=== PATIENT | female | born 1970 | race Caucasian/White ===

== ENCOUNTER 2017-07-26 04:53 | Emergency (ER) | payer MEDICAID, OTHER ==
[~2017-07-26 04:53] MED LIST: Z.0.NO CURRENT MEDS
[2017-07-26 04:55] VITALS: BP 136/92; PULSE 98; RESP 16; TEMP 98.4; O2SAT 100
[2017-07-26] MEDS ORDERED: ADVA250A INH (05:02)
[2017-07-26] MEDS ORDERED: LYRI50CA PO (05:02)
[2017-07-26] MEDS ORDERED: SPIRCAP INH (05:02)
[2017-07-26] MEDS ORDERED: NEBULIZERS (05:02)
[2017-07-26] MEDS ORDERED: FOLI800T PO (05:02)
[2017-07-26] MEDS ORDERED: ALPR.25 PO (05:02)
[2017-07-26] MEDS ORDERED: SODIUM CHLOR 0.9% 1000 ML INJ 1,000 ML IV SCH (05:33)
[2017-07-26] MEDS ORDERED: SODIUM CHLORIDE 0.9% FLUSH 10 ML FLUSH IV FLUSH PRN (05:45)
--- NOTE | 2017-07-26 05:55 | PD ---
HPI . Right shoulder pain Chief Complaint: Pain: Acute or Chronic Time Seen by Provider: 05:24 Travel History International Travel<30 days: No Contact w/Intl Traveler<30days: No Traveled to known affect area: No History of Present Illness HPI This patient presents with multiple complaints. Her chief complaint is sharp, right-sided shoulder pain which she rates 9/10. The pain is constant. There is no known modifying factor. Pain has been unrelieved by Lortab. In addition, the patient is complaining with a migraine. Onset was several days ago. She has associated blurred vision and nausea. Finally, the patient has bilateral lower extremity numbness and weakness. The patient reports that she has been seen at a couple of [facility] for these complaints during the last couple days. She states that she has had blood work and CT scans done. PFSH Past Medical History Arthritis: Yes Cardiovascular Problems: No COPD: Yes Diminished Hearing: No Fibromyalgia: Yes Gastrointestinal Disorders: Yes (COLITIS) Genitourinary: No Headaches: Yes Musculoskeletal: No Neurologic: No Reproductive: Yes (ENDOMETROSIS) Respiratory: No Immunizations Current: No Migraines: Yes Tetanus Vaccination: < 5 Years Influenza Vaccination: No ?: Not Ovarian Cysts: Yes Past Surgical History Gynecologic Surgery: Yes (TOTAL HYSTERECTOMY, UTERIN ABLATION) Hysterectomy: Yes (2007) Other Surgery: Yes Social History Alcohol Use: Yes Tobacco Use: Yes Substance Use: Yes Allergies-Medications (Allergen,Severity, Reaction): Coded Allergies: acetaminophen (Unverified Allergy, Severe, RASH, 06/07/17) codeine (Unverified Allergy, Severe, N/V, 06/07/17) hydrocodone (Unverified Allergy, Severe, RASH, 06/07/17) lamotrigine (Verified Allergy, Severe, Hallucinations, 07/26/17) sulfamethoxazole (Unverified Allergy, Severe, HIVES, 07/26/17) trimethoprim (Unverified Allergy, Severe, HIVES, 06/07/17) vancomycin (Verified Allergy, Severe, Rash, 07/26/17) meperidine (Unverified Allergy, Mild, N/V, 06/07/17) cyclobenzaprine (Verified Adverse Reaction, Mild, DOESN'T FEEL RIGHT, 07/26) Reported Meds & Prescriptions Reported Meds & Active Scripts Active Reported [Nebulizers] Folic Acid 0.8 Mg Tab 800 Mcg PO DAILY Lyrica (Pregabalin) 50 Mg Cap 50 Mg PO TID Spiriva Handihaler (Tiotropium Inh) 18 Mcg Cap 18 Mcg INH DAILY 1 capsule = 18 mcg Advair Diskus Inh (Fluticasone-Salmeterol Inh) 250-50 Mcg/Blist Aer 1 Puff INH BID Rinse mouth after use. Xanax (Alprazolam) 0.25 Mg Tab 0.25 Mg PO Q8H PRN Review of Systems Except as stated in HPI: all other systems reviewed are Neg General / Constitutional: No: Fever, Chills Eyes: Positive: Blurred Vision HENT: Positive: Headaches Cardiovascular: No: Chest Pain or Discomfort Respiratory: No: Shortness of Breath Gastrointestinal: Positive: Nausea, Vomiting, No: Diarrhea Genitourinary: No: Urgency, Frequency, Dysuria Musculoskeletal: Positive: Myalgias, Arthralgias Neurologic: Positive: Weakness, Paresthesia Physical Exam Narrative GENERAL: The patient looks like she is medicated. Speech is a little bit slurred. She is a little bit drowsy. SKIN: warm/dry. HEAD: Normocephalic. Atraumatic. EYES: Pupils equal and round. No scleral icterus. No injection or drainage. ENT: No nasal bleeding or discharge. Mucous membranes pink but dry. NECK: Trachea midline. Full range of motion without pain.. CARDIOVASCULAR: Regular rate and rhythm. Heart sounds are normal. RESPIRATORY: No accessory muscle use. Clear to auscultation. Breath sounds equal bilaterally. GASTROINTESTINAL: Abdomen soft. Nontender. Bowel sounds present. Nondistended. MUSCULOSKELETAL: No obvious deformities. NEUROLOGICAL: Awake and alert. No obvious cranial nerve deficits. Motor grossly within normal limits. Toes are downgoing bilaterally. PSYCHIATRIC: Appropriate mood and affect; insight and judgment normal. Data Data Last Documented VS Vital Signs Date Time Temp Pulse Resp B/P (MAP) Pulse Ox O2 Delivery O2 Flow Rate FiO2 07/26/17 06:03 89 16 132/84 (100) 96 Room Air 07/26/17 04:55 98.4 Orders Orders Complete Blood Count With Diff (07/26/17 05:33) Comprehensive Metabolic Panel (07/26/17 05:33) Lipase (07/26/17 05:33) Lactic Acid (07/26/17 05:33) Urinalysis - C+S If Indicated (07/26/17 05:33) Iv Access Insert/Monitor (07/26/17 05:33) Sodium Chlor 0.9% 1000 Ml Inj (Ns 1000 M (07/26/17 05:33) Sodium Chloride 0.9% Flush (Ns Flush) (07/26/17 05:45) Ed Urine Pregnancytest Poc (07/26/17 05:33) Urine Culture (07/26/17 06:00) Labs Laboratory Tests Test 07/26/17 06:00 White Blood Count 10.7 TH/MM3 Red Blood Count 4.26 MIL/MM3 Hemoglobin 13.5 GM/DL Hematocrit 40.0 % Mean Corpuscular Volume 94.0 FL Mean Corpuscular Hemoglobin 31.7 PG Mean Corpuscular Hemoglobin Concent 33.7 % Red Cell Distribution Width 13.9 % Platelet Count 293 TH/MM3 Mean Platelet Volume 8.6 FL Neutrophils (%) (Auto) 59.2 % Lymphocytes (%) (Auto) 32.4 % Monocytes (%) (Auto) 5.2 % Eosinophils (%) (Auto) 2.0 % Basophils (%) (Auto) 1.2 % Neutrophils # (Auto) 6.3 TH/MM3 Lymphocytes # (Auto) 3.5 TH/MM3 Monocytes # (Auto) 0.6 TH/MM3 Eosinophils # (Auto) 0.2 TH/MM3 Basophils # (Auto) 0.1 TH/MM3 CBC Comment DIFF FINAL Differential Comment Urine Color YELLOW Urine Turbidity HAZY Urine pH 7.5 Urine Specific [place] 1.017 Urine Protein TRACE mg/dL Urine Glucose (UA) NEG mg/dL Urine Ketones NEG mg/dL Urine Occult Blood NEG Urine Nitrite NEG Urine Bilirubin NEG Urine Urobilinogen LESS THAN 2.0 MG/DL Urine Leukocyte Esterase LARGE Urine RBC 1 /hpf Urine WBC 10 /hpf Urine Squamous Epithelial Cells <1 /hpf Urine Renal Epithelial Cells <1 /hpf Urine Amorphous Sediment RARE Urine Bacteria OCC /hpf Urine Mucus FEW /lpf Microscopic Urinalysis Comment CULTURE INDICATED Blood Urea Nitrogen 9 MG/DL Creatinine 0.69 MG/DL Random Glucose 77 MG/DL Total Protein 5.8 GM/DL Albumin 3.0 GM/DL Calcium Level 8.3 MG/DL Alkaline Phosphatase 80 U/L Aspartate Amino Transf (AST/SGOT) 16 U/L Alanine Aminotransferase (ALT/SGPT) 21 U/L Total Bilirubin 0.3 MG/DL Sodium Level 142 MEQ/L Potassium Level 3.7 MEQ/L Chloride Level 106 MEQ/L Carbon Dioxide Level 33.5 MEQ/L Anion Gap 3 MEQ/L Estimat Glomerular Filtration Rate 92 ML/MIN Lactic Acid Level 1.2 mmol/L Lipase 67 U/L MDM Medical Decision Making Medical Screen Exam Complete: Yes Emergency Medical Condition: Yes Medical Record Reviewed: Yes (records from [facility] have been received and reviewed. The patient had blood work done there which was time 03 100 today. She had a CBC which was normal, PT and PTT which were normal, electrolytes which were normal, liver function studies which were normal. She also had a CT of her head which was negative. The patient was also seen at [facility] on 07/25 at about 10 PM. (5 hours prior to the latest visit)) Differential Diagnosis Differential diagnosis includes but is not limited to viral gastritis, food poisoning, pancreatitis, pneumonia, hepatitis, acute coronary syndrome, Differential diagnosis of headache includes but is not limited to migraine, muscle contraction headache, brain tumor, brain bleed Differential diagnosis of joint pain includes but is not limited to arthritis, gout, sprain/strain, fracture, dislocation, bursitis My differential diagnosis of paresthesias includes but is not limited to anxiety , radiculopathy, peripheral neuropathy, peripheral vascular disease, compartment syndrome Narrative Course This patient presents with multiple, seemingly unrelated complaints. She states that she has been to at least 2 hospitals prior to coming here. She states that she has had blood work and CT scans done. I have ordered blood work but have not ordered any CT scans. We are attempting to obtain her records from the outside hospitals. CBC & BMP Diagram 07/26/17 06:00 Total Protein 5.8 L, Albumin 3.0 L, Calcium Level 8.3 L, Alkaline Phosphatase 80 , Aspartate Amino Transf (AST/SGOT) 16, Alanine Aminotransferase (ALT/SGPT) 21, Total Bilirubin 0.3 Lactic acid level is 1.2. UA shows large leukocyte esterase, 10 white cells, occasional bacteria. This patient reports multiple drug allergies. Cephalosporins are not on that list. Her urinary tract infection will be treated with Keflex. The history, exam, diagnostic testing, and current condition do not suggest any significant pathology to warrant further testing, continued ED treatment, admission, or surgical evaluation at this point. The patient's condition is stable and appropriate for discharge. Diagnosis Primary Impression: Vomiting Qualified Codes: R11.2 - Nausea with vomiting, unspecified Additional Impressions: Urinary tract infection Qualified Codes: N30.00 - Acute cystitis without hematuria Multiple somatic complaints Med/Other Pt SpecificInfo: Prescription(s) given Scripts Cephalexin (Keflex) 500 Mg Cap 500 MG PO Q8H for Infection, #15 CAP 0 Refills Prov: Jessika Bush MD 07/26/17 Disposition: 01 DISCHARGE HOME Condition: Stable Jessika Bush MD Jul 26, 2017 05:55
[2017-07-26 06:03] VITALS: BP 132/84; PULSE 89; RESP 16; O2SAT 96
[2017-07-26 06:18] LABS: AUTOMATED NEUTROPHIL # 6.3 TH/MM3 (1.8-7.7); BASOPHIL # 0.1 TH/MM3 (0-0.2); BASOPHIL % 1.2 % (0.0-2.0); EOSINOPHIL # 0.2 TH/MM3 (0-0.4); HEMO FLAGS DIFF FINAL; LYMPH % 32.4 % (9.0-44.0); LYMPHOCYTE # 3.5 TH/MM3 (1.0-4.8); MEAN CORPUSCULAR HEMOGLOBIN 31.7 PG (27.0-34.0); MEAN CORPUSCULAR HGB CONC 33.7 % (32.0-36.0); MONO % 5.2 % (0.0-8.0); NEUT % 59.2 % (16.0-70.0); PLATELET COUNT 293 TH/MM3 (150-450); RED BLOOD COUNT 4.26 MIL/MM3 (4.00-5.30); RED CELL DISTRIBUTION WIDTH 13.9 % (11.6-17.2); WHITE BLOOD COUNT 10.7 TH/MM3 (4.0-11.0)
[2017-07-26 06:30] LABS: BACTERIA, URINE OCC /hpf; BLOOD, URINE NEG (NEG); COMMENT (UR) CULTURE INDICATED; CULTURE IF INDICATED CULTURE INDICATED; GLUCOSE,URINE NEG (NEG); KETONE, URINE NEG (NEG); MUCUS URINE FEW /lpf (OCC); NITRITE,URINE NEG (NEG); PH, URINE 7.5 (5.0-8.5); RENAL EPITHELIAL CELLS <1 /hpf; SQUAMOUS EPITHELIAL CELL URINE <1 /hpf (0-5); URINE COLOR YELLOW (YELLW/STRAW)
[2017-07-26 06:40] LABS: ANION GAP 3 MEQ/L (5-15); AST (GOT) 16 U/L (15-37); BICARBONATE 33.5 MEQ/L (21.0-32.0); BLOOD UREA NITROGEN 9 MG/DL (7-18); CHLORIDE 106 MEQ/L (98-107); GLOMERULAR FILTRATION RATE 92 ML/MIN (>89); POTASSIUM 3.7 MEQ/L (3.5-5.1); SODIUM (NA) 142 MEQ/L (136-145)
[2017-07-26 06:43] LABS: ALKALINE PHOSPHATASE 80 U/L (45-117); ALT (GPT) 21 U/L (10-53); TOTAL BILIRUBIN ADULT 0.3 MG/DL (0.2-1.0)
[2017-07-26] MEDS ORDERED: CEPH-460 PO (06:52)
[2017-07-26 07:37] VITALS: BP 129/76
== END 2017-07-26 07:48 | disposition home or self-care (01) ==
LOC: NEPE 04:53
DX: N30.00 Acute cystitis without hematuria (principal); B96.20 Unspecified Escherichia coli [E. coli] as the cause of diseases classified elsewhere; R11.2 Nausea with vomiting, unspecified
CPT/HCPCS: 80053; 81001; 83605; 83690; 84703; 85025; 87077; 87086; 87186; 99284; J7030

== ENCOUNTER 2017-07-31 16:10 | Emergency (ER) | payer MEDICAID ==
[~2017-07-31] VITALS: Ht 154.9 cm; Wt 54.5 kg
[~2017-07-31 16:10] MED LIST changes: +ADVA250A INH; +ALPR.25 PO; +CEPH-460 PO; +FOLI800T PO; +LYRI50CA PO; +NEBULIZERS; +SPIRCAP INH; -Z.0.NO CURRENT MEDS
[2017-07-31 16:13] VITALS: BP 124/77; PULSE 102; RESP 13; TEMP 99.2; O2SAT 96
[2017-07-31] MEDS ORDERED: MELO-1 PO (19:47)
[2017-07-31] MEDS ORDERED: SODIUM CHLOR 0.9% 1000 ML INJ 1,000 ML IV SCH (19:51)
--- NOTE | 2017-07-31 19:58 | PD ---
HPI Chief Complaint: Pain: Acute or Chronic Time Seen by Provider: 19:39 Travel History International Travel<30 days: No Contact w/Intl Traveler<30days: No Traveled to known affect area: No History of Present Illness HPI Patient is a 47-year-old female presenting to the emergency department for evaluation of pain, nausea, vomiting. Patient states that she has fibromyalgia and has pain normally however the pain in her back, chest wall and head is worse than it normally is. She reports since 4 PM yesterday she has been nauseous and vomiting. She denies any abdominal pain. She states the pain is causing her to feel nauseated. She reports a cough but it's chronic in nature secondary to her COPD. Patient's past medical history significant for COPD, fibromyalgia, arthritis, anxiety. Her primary doctor is at the [facility] in [place]. She states that her pain is an 8 out of 10. She states that she has spasms which feels like her whole body is seizing up. She denies any visual changes, chest pain, shortness of breath. PFSH Past Medical History Arthritis: Yes Anxiety: Yes Cardiovascular Problems: No COPD: Yes Diabetes: No Patient Takes Glucophage: No Diminished Hearing: No Fibromyalgia: Yes Gastrointestinal Disorders: Yes (COLITIS) Genitourinary: No Headaches: Yes Musculoskeletal: No Neurologic: No Reproductive: Yes (ENDOMETROSIS) Respiratory: No Immunizations Current: Yes Migraines: Yes Tetanus Vaccination: > 5 Years ?: Not Ovarian Cysts: Yes Past Surgical History Gynecologic Surgery: Yes (TOTAL HYSTERECTOMY, UTERIN ABLATION) Hysterectomy: Yes Other Surgery: Yes Social History Alcohol Use: Yes (OCCASIONAL) Tobacco Use: Yes (1/2 PPD) Substance Use: Yes Allergies-Medications (Allergen,Severity, Reaction): Coded Allergies: acetaminophen (Unverified Allergy, Severe, RASH, 07/31/17) codeine (Unverified Allergy, Severe, N/V, 07/31/17) hydrocodone (Unverified Allergy, Severe, RASH, 07/31/17) lamotrigine (Verified Allergy, Severe, Hallucinations, 07/31/17) sulfamethoxazole (Unverified Allergy, Severe, HIVES, 07/31/17) trimethoprim (Unverified Allergy, Severe, HIVES, 07/31/17) vancomycin (Verified Allergy, Severe, Rash, 07/31/17) meperidine (Unverified Allergy, Mild, N/V, 07/31/17) cyclobenzaprine (Verified Adverse Reaction, Mild, DOESN'T FEEL RIGHT, 07/31) Reported Meds & Prescriptions Reported Meds & Active Scripts Active Reported Meloxicam 15 Mg Tab 15 Mg PO DAILY [Nebulizers] Folic Acid 0.8 Mg Tab 800 Mcg PO DAILY Lyrica (Pregabalin) 50 Mg Cap 50 Mg PO TID Spiriva Handihaler (Tiotropium Inh) 18 Mcg Cap 18 Mcg INH DAILY 1 capsule = 18 mcg Advair Diskus Inh (Fluticasone-Salmeterol Inh) 250-50 Mcg/Blist Aer 1 Puff INH BID Rinse mouth after use. Xanax (Alprazolam) 0.25 Mg Tab 0.25 Mg PO Q8H PRN Review of Systems Except as stated in HPI: all other systems reviewed are Neg General / Constitutional: No: Fever Eyes: No: Blurred Vision HENT: No: Headaches Cardiovascular: No: Chest Pain or Discomfort Respiratory: Positive: Cough, No: Shortness of Breath Gastrointestinal: Positive: Nausea, Vomiting, No: Abdominal Pain Musculoskeletal: Positive: Myalgias, Cramping Physical Exam Narrative GENERAL: Well-developed, well-nourished, alert female. Appears uncomfortable, in no acute distress. SKIN: Warm and dry. HEAD: Atraumatic. Normocephalic. EYES: Pupils equal and round. No scleral icterus. No injection or drainage. ENT: No nasal bleeding or discharge. Mucous membranes pink and moist. NECK: Trachea midline. No JVD. CARDIOVASCULAR: Regular rate and rhythm. RESPIRATORY: No accessory muscle use. Scattered expiratory wheezes in bases. Breath sounds equal bilaterally. GASTROINTESTINAL: Abdomen soft, non-tender, nondistended. Hepatic and splenic margins not palpable. MUSCULOSKELETAL: Extremities without clubbing, cyanosis, or edema. No obvious deformities. + CVAT bilaterally. NEUROLOGICAL: Awake and alert. No obvious cranial nerve deficits. Motor grossly within normal limits. Five out of 5 muscle strength in the arms and legs. Normal speech. PSYCHIATRIC: Appropriate mood and affect; insight and judgment normal. Data Data Last Documented VS Vital Signs Date Time Temp Pulse Resp B/P (MAP) Pulse Ox O2 Delivery O2 Flow Rate FiO2 07/31/17 21:24 58 20 157/72 (100) 98 07/31/17 16:13 99.2 Orders Orders Electrocardiogram (07/31/17 ) Complete Blood Count With Diff (07/31/17 19:51) Comprehensive Metabolic Panel (07/31/17 19:51) Lipase (07/31/17 19:51) Urinalysis - C+S If Indicated (07/31/17 19:51) Iv Access Insert/Monitor (07/31/17 19:51) Ecg Monitoring (07/31/17 19:51) Oximetry (07/31/17 19:51) Ondansetron Inj (Zofran Inj) (07/31/17 20:00) Sodium Chlor 0.9% 1000 Ml Inj (Ns 1000 M (07/31/17 19:51) Sodium Chloride 0.9% Flush (Ns Flush) (07/31/17 20:00) Chest, Single Ap (07/31/17 19:51) Ketorolac Inj (Toradol Inj) (07/31/17 20:00) Metoclopramide Inj (Reglan Inj) (07/31/17 20:30) Labs Laboratory Tests Test 07/31/17 20:30 07/31/17 20:50 White Blood Count 11.3 TH/MM3 Red Blood Count 5.08 MIL/MM3 Hemoglobin 16.1 GM/DL Hematocrit 47.6 % Mean Corpuscular Volume 93.7 FL Mean Corpuscular Hemoglobin 31.7 PG Mean Corpuscular Hemoglobin Concent 33.8 % Red Cell Distribution Width 14.5 % Platelet Count 309 TH/MM3 Mean Platelet Volume 8.8 FL Neutrophils (%) (Auto) 56.7 % Lymphocytes (%) (Auto) 33.8 % Monocytes (%) (Auto) 6.3 % Eosinophils (%) (Auto) 1.7 % Basophils (%) (Auto) 1.5 % Neutrophils # (Auto) 6.4 TH/MM3 Lymphocytes # (Auto) 3.8 TH/MM3 Monocytes # (Auto) 0.7 TH/MM3 Eosinophils # (Auto) 0.2 TH/MM3 Basophils # (Auto) 0.2 TH/MM3 CBC Comment DIFF FINAL Differential Comment Blood Urea Nitrogen 12 MG/DL Creatinine 0.71 MG/DL Random Glucose 80 MG/DL Total Protein 7.5 GM/DL Albumin 3.9 GM/DL Calcium Level 9.5 MG/DL Alkaline Phosphatase 111 U/L Aspartate Amino Transf (AST/SGOT) 19 U/L Alanine Aminotransferase (ALT/SGPT) 23 U/L Total Bilirubin 0.3 MG/DL Sodium Level 139 MEQ/L Potassium Level 3.9 MEQ/L Chloride Level 105 MEQ/L Carbon Dioxide Level 27.6 MEQ/L Anion Gap 6 MEQ/L Estimat Glomerular Filtration Rate 89 ML/MIN Lipase 119 U/L Urine Color LIGHT-YELLOW Urine Turbidity CLEAR Urine pH 7.5 Urine Specific [place] 1.006 Urine Protein NEG mg/dL Urine Glucose (UA) NEG mg/dL Urine Ketones NEG mg/dL Urine Occult Blood NEG Urine Nitrite NEG Urine Bilirubin NEG Urine Urobilinogen LESS THAN 2.0 MG/DL Urine Leukocyte Esterase NEG Urine WBC LESS THAN 1 /hpf Urine Squamous Epithelial Cells <1 /hpf Microscopic Urinalysis Comment CULT NOT INDICATED MDM Medical Decision Making Medical Screen Exam Complete: Yes Emergency Medical Condition: Yes Medical Record Reviewed: Yes Interpretation(s) Vital Signs Date Time Temp Pulse Resp B/P (MAP) Pulse Ox O2 Delivery O2 Flow Rate FiO2 07/31/17 16:13 99.2 102 13 124/77 (93) 96 Differential Diagnosis UTI versus muscle spasms versus gastritis versus metabolic abnormality versus malingering versus other Narrative Course Patient presents with multiple medical complaints, she was seen and evaluated in this emergency department 2 days ago with seemingly same complaints. She was also seen and evaluated at 2 other hospitals prior to her last visit here according to previous provider's notes. Patient's vital signs are stable, we' ll recheck basic labs and a urine to ensure resolution of her previously diagnosed urinary tract infection. IV fluids, Zofran and Toradol ordered. Will reassess. Chest x-ray which is read by radiology shows no acute disease. CBC, chemistry, urinalysis are reviewed, no acute abnormalities identified. Previously diagnosed urinary tract infection has resolved completely. Abdominal exam is benign. Patient is observed on her cell phone resting comfortably. She was observed ambulating to the bathroom without difficulty. Patient has not vomited any further in the emergency department after administration of antiemetic medication. She will be discharged home, she is encouraged to up with her primary doctor. She is encouraged to maintain a bland , low residue diet, increasing tolerated. She'll be given a prescription for Zofran. She is encouraged to return to emergency room for any new or worsening symptoms. Diagnosis Primary Impression: Nausea & vomiting Qualified Codes: R11.2 - Nausea with vomiting, unspecified Additional Impression: Musculoskeletal pain Referrals: Primary Care Physician 2 days Patient Instructions: Acute Nausea and Vomiting (ED), General Instructions Additional Instructions: Follow-up with her primary doctor Continue with previously prescribed medications Maintain a bland low residue diet, increasing as tolerated Maintain adequate fluid intake Return to emergency department for any new or worsening symptoms Med/Other Pt SpecificInfo: Prescription(s) given Scripts Ondansetron Odt (Zofran Odt) 4 Mg Tab 4 MG SL Q6HR Y for Nausea/Vomiting, #12 TAB 0 Refills Prov: Susanne Pearce 07/31/17 Disposition: 01 DISCHARGE HOME Condition: Stable Susanne Pearce Jul 31, 2017 19:58
[2017-07-31] MEDS ORDERED: KETOROLAC TROMETHAMINE 30 MG/ML (IVP) VIAL IVP ONE (20:00)
[2017-07-31] MEDS ORDERED: SODIUM CHLORIDE 0.9% FLUSH 10 ML FLUSH IV FLUSH PRN (20:00)
[2017-07-31] MEDS ORDERED: ONDANSETRON HCL 4 MG/2 ML VIAL IVP ONE (20:00)
--- NOTE | 2017-07-31 20:16 | RADRPT ---
EXAM DATE/TIME: 07/31/2017 20:00 [facility] COMPARISON: No previous studies available for comparison. INDICATIONS : Cough, shortness of breath and left sided chest pain. MEDICAL HISTORY : Chronic obstructive pulmonary disease. Pneumonia. SURGICAL HISTORY : None. ENCOUNTER: Initial ACUITY: 1 day PAIN SCORE: 4/10 LOCATION: Left chest FINDINGS: Hyperinflation. Heart size normal. Lungs are clear. CONCLUSION: No acute disease. David Dowd MD on July 31, 2017 at 20:14 Board Certified Radiologist. This report was verified electronically.
[2017-07-31] MEDS ORDERED: METOCLOPRAMIDE HCL 10 MG/2 ML VIAL IV PUSH ONE (20:30)
[2017-07-31 20:42] LABS: AUTOMATED NEUTROPHIL # 6.4 TH/MM3 (1.8-7.7); BASOPHIL # 0.2 TH/MM3 (0-0.2); BASOPHIL % 1.5 % (0.0-2.0); EOSINOPHIL # 0.2 TH/MM3 (0-0.4); EOSINOPHIL % 1.7 % (0.0-4.0); HEMATOCRIT 47.6 % (35.0-46.0); HEMO FLAGS DIFF FINAL; LYMPH % 33.8 % (9.0-44.0); LYMPHOCYTE # 3.8 TH/MM3 (1.0-4.8); MEAN CELL VOLUME 93.7 FL (80.0-100.0); MEAN CORPUSCULAR HEMOGLOBIN 31.7 PG (27.0-34.0); MEAN CORPUSCULAR HGB CONC 33.8 % (32.0-36.0); MONO % 6.3 % (0.0-8.0); NEUT % 56.7 % (16.0-70.0); PLATELET COUNT 309 TH/MM3 (150-450); RED BLOOD COUNT 5.08 MIL/MM3 (4.00-5.30); RED CELL DISTRIBUTION WIDTH 14.5 % (11.6-17.2); WHITE BLOOD COUNT 11.3 TH/MM3 (4.0-11.0)
[2017-07-31 21:04] LABS: BLOOD, URINE NEG (NEG); GLUCOSE,URINE NEG (NEG); KETONE, URINE NEG (NEG); NITRITE,URINE NEG (NEG); PH, URINE 7.5 (5.0-8.5); SQUAMOUS EPITHELIAL CELL URINE <1 /hpf (0-5); URINE COLOR LIGHT-YELLOW (YELLW/STRAW)
[2017-07-31 21:06] LABS: COMMENT (UR) CULT NOT INDICATED; CULTURE IF INDICATED CULT NOT INDICATED
[2017-07-31 21:06] LABS: ALT (GPT) 23 U/L (10-53)
[2017-07-31 21:08] LABS: ALKALINE PHOSPHATASE 111 U/L (45-117); TOTAL BILIRUBIN ADULT 0.3 MG/DL (0.2-1.0)
[2017-07-31 21:24] VITALS: BP 157/72; PULSE 58; RESP 20; O2SAT 98
[2017-07-31 21:27] LABS: ANION GAP 6 MEQ/L (5-15); AST (GOT) 19 U/L (15-37); BICARBONATE 27.6 MEQ/L (21.0-32.0); BLOOD UREA NITROGEN 12 MG/DL (7-18); CHLORIDE 105 MEQ/L (98-107); GLOMERULAR FILTRATION RATE 89 ML/MIN (>89); POTASSIUM 3.9 MEQ/L (3.5-5.1); SODIUM (NA) 139 MEQ/L (136-145)
[2017-07-31] MEDS ORDERED: ZOFR4TAB3 SL (21:34)
--- NOTE | 2017-08-01 12:29 | EKG ---
Date Performed: 07/31/2017 Time Performed: 19:31:45 PTAGE: 47 years EKG: Sinus rhythm WITH SINUS ARRHYTHMIA WITH SHORT DE INTERVAL BORDERLINE ECG NO PREVIOUS TRACING DOCTOR: Esequiel Krishna Interpretating Date/Time 08/01/2017 12:27:02
== END 2017-07-31 22:01 | disposition home or self-care (01) ==
LOC: NEPD 16:10
DX: R11.2 Nausea with vomiting, unspecified (principal); M79.7 Fibromyalgia; J44.9 Chronic obstructive pulmonary disease, unspecified; Z72.0 Tobacco use; R94.31 Abnormal electrocardiogram [ECG] [EKG]
CPT/HCPCS: 71010; 80053; 81001; 83690; 85025; 93005; 96361; 96374; 96375; 99285; J1885; J2405; J2765; J7030